=== PATIENT | male | born 1980 ===

== ENCOUNTER 2018-02-08 10:38 | Emergency (ER) | payer SELFPAY ==
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
--- NOTE | 2018-02-08 12:23 | RAD ---
HISTORY: Pain between shoulder blades, trauma COMPARISONS: None VIEWS: 5: Frontal dual-energy and lateral views of the chest. FINDINGS: CARDIOMEDIASTINAL SILHOUETTE: The cardiomediastinal silhouette is normal. THIERRY: The thierry are normal. PLEURA: The costophrenic angles are sharp. No pleural abnormalities are noted. LUNG PARENCHYMA: The lungs are clear. ABDOMEN: The upper abdomen is clear. There is no subphrenic gas. BONES AND SOFT TISSUES: No bone or soft tissue abnormalities are noted. OTHER: None. IMPRESSION: NO ACTIVE CARDIOPULMONARY DISEASE.
== END 2018-02-08 12:36 | disposition home or self-care (01) ==
LOC: UCEAST 10:38
DX: S29.012A Strain of muscle and tendon of back wall of thorax, initial encounter (principal); S80.211A Abrasion, right knee, initial encounter; V47.0XXA Car driver injured in collision with fixed or stationary object in nontraffic accident, initial encounter; Y93.89 Activity, other specified; Y92.410 Unspecified street and highway as the place of occurrence of the external cause; Z88.0 Allergy status to penicillin
CPT/HCPCS: 71046; 99201; G0463

== ENCOUNTER 2019-08-16 12:01 | Emergency (ER) | payer SELFPAY ==
--- NOTE | 2019-08-16 12:38 | UC ---
FLU HPI - HPI Summary HPI Summary: 39 yo male presents with flu-like symptoms. He tells me that for the last 2 days has had fatigue, body aches, and sinus congestion. He has not taken anything OTC for his symptoms. Denies fever, chills, sore throat, cough, SOB, abdominal pain, n/v . - History of Current Complaint Chief Complaint: [facility] Stated Complaint: FLU LIKE SYMPTOMS Time Seen by Provider: 08/16/19 12:38 Hx Obtained From: Patient Onset/Duration: Sudden Onset Severity Currently: Mild Severity Initially: Mild Pain Intensity: 1 Pain Scale Used: 0-10 Numeric - Allergy/Home Medications Allergies/Adverse Reactions: Allergies Allergy/AdvReac Type Severity Reaction Status Date / Time Penicillins Allergy Anaphylatic Verified 08/16/19 13:20 Shock PMH/Surg Hx/FS Hx/Imm Hx - Additional Past Medical History Additional PMH: None - Surgical History Surgical History: None - Family History Known Family History: Positive: Unknown - Social History Occupation: Employed Full-time Lives: With Family Alcohol Use: None Substance Use Type: None Smoking Status (MU): Never Smoked Tobacco Review of Systems All Other Systems Reviewed And Are Negative: No Constitutional: Positive: Fatigue, Other - Body aches Skin: Positive: Negative Eyes: Positive: Negative ENT: Positive: Sinus Congestion Respiratory: Positive: Negative Cardiovascular: Positive: Negative Gastrointestinal: Positive: Negative Neurovascular: Positive: Negative Neurological: Positive: Negative Psychological: Positive: Negative Physical Exam - Summary Physical Exam Summary: GENERAL: NAD. WDWN. No pain distress. SKIN: No rashes, sores, lesions, or open wounds. HEENT: Head: AT/NC Eyes: EOM intact. Conjunctiva clear without inflammation or discharge. Ears: Hearing grossly normal. TMs intact, no bulging, erythema, or edema. Nose: Nasal mucosa pink and moist. NTTP maxillary and frontal sinus. Throat: Posterior oropharynx without exudates, erythema, or tonsillar enlargement. Uvula midline. NECK: Supple. Nontender. No lymphadenopathy. CHEST: CTAB. No accessory muscle use. Breathing comfortably and in no distress. CV: RRR. Pulses intact. Cap refill <2seconds NEURO: Alert. PSYCH: Age appropriate behavior. Triage Information Reviewed: Yes Vital Signs: Initial Vital Signs Temp 99.4 F 08/16/19 12:30 Pulse 97 08/16/19 12:30 Resp 16 08/16/19 12:30 BP 127/87 08/16/19 12:30 Pulse Ox 99 08/16/19 12:30 Laboratory Tests 08/16/19 12:52 Influenza A (Rapid) Negative Influenza B (Rapid) Negative Vital Signs Reviewed: Yes Flu Course/Dx - Course Course Of Treatment: POC flu negative. Suspect viral illness. Advised to try supportive care such as mucinex, tylenol/ibuprofen, and fluids - Differential Dx/Diagnosis Provider Diagnosis: Viral illness Discharge ED - Sign-Out/Discharge Documenting (check all that apply): Patient Departure All imaging exams completed and their final reports reviewed: No Studies - Discharge Plan Condition: Stable Disposition: HOME Patient Education Materials: Viral Syndrome (ED) Referrals: No Primary Care Phys,NOPCP [Primary Care Provider] - Additional Instructions: Your symptoms are likely from a viral infection. Viral infections do not respond to antibiotics and are limited to the treatment of symptoms. Viral infections typically run their course in 7-10 days. Drink plenty of fluids, especially if you are running any fever. Use salt water gargles several times a day. Take over the counter acetaminophen (Tylenol) or ibuprofen (Advil, Motrin) according to directions as needed for pain or fever. You may also use Chloraseptic spray or Cepacol lonzenges according to directions which contain a numbing medication and can provide some temporary relief from a sore throat. Return here or follow up with your primary care provider in 7 days if symptoms persist. - Billing Disposition and Condition Condition: STABLE Disposition: Home - Attestation Statements Provider Attestation: I was available for consult. This patient was seen by the [facility]. The patient was not presented to, seen by, or examined by me. -Cindy
[2019-08-16 13:04] LABS: Influenza A Molecular NEGATIVE (Negative); Influenza B Molecular NEGATIVE (Negative)
== END 2019-08-16 13:30 | disposition home or self-care (01) ==
LOC: UCEAST 12:01
DX: R53.83 Other fatigue (principal); R52 Pain, unspecified; R09.81 Nasal congestion; Z88.0 Allergy status to penicillin
CPT/HCPCS: 99201; G0463

== ENCOUNTER 2019-08-16 12:02 | Emergency (ER) | payer SELFPAY ==
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
== END 2019-08-16 13:30 | disposition home or self-care (01) ==
LOC: UCEAST 12:02
DX: M62.838 Other muscle spasm (principal); Z88.0 Allergy status to penicillin
CPT/HCPCS: 99211; G0463